=== PATIENT | male | born 1960 | race Caucasian/White ===

== ENCOUNTER 2020-09-20 14:40 | Inpatient (IN) | payer OTHER ==
[~2020-09-20] VITALS: Ht 175.3 cm; Wt 74.8 kg
[~2020-09-20 14:40] MED LIST: AMLODIPINE BESY10 MG PO; ASPIRIN CHEWABL81 MG PO; ASPIRIN EC81 MG PO; ATORVASTATIN CA20 MG PO; ATORVASTATIN CA40 MG PO; BUMETANIDE1 MG PO; CATAPRES 0.1MG0.1 MG PO; CATAPRES0.2 MG PO; CLOPIDOGREL75 MG PO; FOLIC ACID 1 MG1 MG PO; HYDRALAZINE HC100 MG PO; HYDRALAZINE HCL50 MG PO; ISORDIL TAB 2020 MG PO; LASIX 40 MG TAB40 MG PO; LASIX TAB 20 MG20 MG PO; LIPITOR40 MG PO; LISINOPRIL20 MG PO; LOPRESSOR 25 MG25 MG PO; LOPRESSOR 50 MG50 MG PO; PANTOPRAZOLE SO40 MG PO; PLAVIX 75 MG TA75 MG PO; POTASSIUM CHLO10 ME1 PO; SODIUM BICARBO650 M1 PO; VOLTAREN EC 7575 MG PO
[2020-09-20 15:07] LABS: HEMOGLOBIN 10.2 gm/dl (14.0-17.5); RED BLOOD COUNT 3.93 M/UL (4.20-5.50); WHITE BLOOD COUNT 10.4 K/UL (4.5-11.0)
[2020-09-21 04:29] LABS: HEMOGLOBIN 9.6 gm/dl (14.0-17.5); RED BLOOD COUNT 3.72 M/UL (4.20-5.50); WHITE BLOOD COUNT 9.8 K/UL (4.5-11.0)
[2020-09-21] MEDS ORDERED: FERROUS SULFAT325 M2 PO (15:52)
[2020-09-21] MEDS ORDERED: ZAROXOLYN/DIULO5 MG PO (15:55)
[2020-09-21] MEDS ORDERED: BUMETANIDE2 MG PO (15:56)
[2020-09-21] MEDS ORDERED: K-TAB ER20 MEQ PO (16:01)
[2020-09-21] MEDS ORDERED: PROTONIX 40 MG40 M1 PO (16:02)
[2020-09-21] MEDS ORDERED: ISORDIL TAB 2020 MG PO (16:03)
[2020-09-21] MEDS ORDERED: HYDRALAZINE HCL50 MG PO (16:05)
[2020-09-21] MEDS ORDERED: CLOPIDOGREL75 MG PO (16:06)
[2020-09-21] MEDS ORDERED: CLONIDINE HCL0.3 MG PO (16:08)
[2020-09-21] MEDS ORDERED: CARVEDILOL25 MG PO (16:10)
[2020-09-21] MEDS ORDERED: ATORVASTATIN CA40 MG PO (16:12)
[2020-09-21] MEDS ORDERED: NORVASC10 MG PO (16:13)
[2020-09-22 03:31] LABS: HEMOGLOBIN 9.6 gm/dl (14.0-17.5); RED BLOOD COUNT 3.71 M/UL (4.20-5.50)
[2020-09-22 03:32] LABS: WHITE BLOOD COUNT 14.9 K/UL (4.5-11.0)
[2020-09-23 04:19] LABS: HEMOGLOBIN 9.9 gm/dl (14.0-17.5); RED BLOOD COUNT 3.74 M/UL (4.20-5.50); WHITE BLOOD COUNT 15.6 K/UL (4.5-11.0)
[2020-09-23 12:14] LABS: HBSAG SCREEN Negative (Negative); HEP A AB, IGM Negative (Negative); HEP B CORE AB, IGM Negative (Negative); HEP C VIRUS AB >11.0 (0.0-0.9)
[2020-09-24 06:26] LABS: HEMOGLOBIN 9.4 gm/dl (14.0-17.5); RED BLOOD COUNT 3.6 M/UL (4.20-5.50); WHITE BLOOD COUNT 10.3 K/UL (4.5-11.0)
[2020-09-24 10:14] LABS: HBSAG SCREEN Negative (Negative); HEP B CORE AB, TOT Negative (Negative); HEP C VIRUS AB >11.0 (0.0-0.9)
[2020-09-25 14:54] LABS: HEMOGLOBIN 9.8 gm/dl (14.0-17.5); RED BLOOD COUNT 3.68 M/UL (4.20-5.50)
[2020-09-26 04:45] LABS: HEMOGLOBIN 9.5 gm/dl (14.0-17.5); RED BLOOD COUNT 3.66 M/UL (4.20-5.50); WHITE BLOOD COUNT 7.6 K/UL (4.5-11.0)
[2020-09-26 13:02] LABS: ADENOVIRUS F 40/41 Not Detected (Negative); ASTROVIRUS Not Detected (Negative); CAMPYLOBACTER Not Detected (Negative); CLOSTRIDIUM DIFFICILE TOX A/B Not Detected (Negative); CRYPTOSPORIDIUM Not Detected (Negative); E.COLI 0157 Not Detected (Negative); ENTAMOEBA HISTOLYTICA Not Detected (Negative); ENTEROAGGREGATIVE E.COLI (EAEC Not Detected (Negative); ENTEROPATHOGENIC E.COLI (EPEC) Not Detected (Negative); ENTEROTOXIGENIC E.COLI (ETEC) Not Detected (Negative); GIARDIA LAMBLIA Not Detected (Negative); NOROVIRUS GI/GII Not Detected (Negative); PLESIOMONAS SHIGELLOIDES Not Detected (Negative); ROTOVIRUS A Not Detected (Negative); SALMONELLA Not Detected (Negative); SAPOVIRUS Not Detected (Negative); SHIG/ENTEROINVAS.ECOLI (EIEC) Not Detected (Negative); SHIGA-LIK TOX.PRO.E.COLI (STEC Not Detected (Negative); VIBRIO Not Detected (Negative); VIBRIO CHOLERAE Not Detected (Negative); YERSINIA ENTEROCOLITICA Not Detected (Negative)
== END 2020-09-26 13:12 | disposition home or self-care (01) | DRG 673 ==
LOC: ER1 14:40 → MED SURG 4 16:05 → PROG CARE 16:05 → CDU 16:05 → PROG CARE 09-21 13:59 → MED SURG 4 09-22 14:24
PROVIDERS: Internal Medicine; Internal Medicine Gastroenterology; Internal Medicine Nephrology; Physician Assistant; Physician Assistant Medical; Surgery; ADMIT Internal Medicine
PROC: B24BZZZ Ultrasonography of Heart with Aorta (ICD-10-PCS; 2020-09-22)
PROC: 05HM33Z Insertion of Infusion Device into Right Internal Jugular Vein, Percutaneous Approach (ICD-10-PCS; 2020-09-23)
PROC: B543ZZA Ultrasonography of Right Jugular Veins, Guidance (ICD-10-PCS; 2020-09-23)
PROC: 5A1D70Z Performance of Urinary Filtration, Intermittent, Less than 6 Hours Per Day (ICD-10-PCS; 2020-09-23)
PROC: 0JH63XZ Insertion of Tunneled Vascular Access Device into Chest Subcutaneous Tissue and Fascia, Percutaneous Approach (ICD-10-PCS; principal; 2020-09-23 09:00)
PROC: 5A1D70Z Performance of Urinary Filtration, Intermittent, Less than 6 Hours Per Day (ICD-10-PCS; 2020-09-24)
PROC: 5A1D70Z Performance of Urinary Filtration, Intermittent, Less than 6 Hours Per Day (ICD-10-PCS; 2020-09-24)
DX: N17.9 Acute kidney failure, unspecified (principal); I50.33 Acute on chronic diastolic (congestive) heart failure; I13.2 Hypertensive heart and chronic kidney disease with heart failure and with stage 5 chronic kidney disease, or end stage renal disease; N18.6 End stage renal disease; I25.10 Atherosclerotic heart disease of native coronary artery without angina pectoris; E78.5 Hyperlipidemia, unspecified; K70.31 Alcoholic cirrhosis of liver with ascites; R94.31 Abnormal electrocardiogram [ECG] [EKG]; I27.20 Pulmonary hypertension, unspecified; I08.3 Combined rheumatic disorders of mitral, aortic and tricuspid valves; R59.9 Enlarged lymph nodes, unspecified; I73.9 Peripheral vascular disease, unspecified; Z20.822 Contact with and (suspected) exposure to COVID-19; K52.9 Noninfective gastroenteritis and colitis, unspecified; D64.9 Anemia, unspecified; F17.210 Nicotine dependence, cigarettes, uncomplicated; F12.90 Cannabis use, unspecified, uncomplicated; I65.23 Occlusion and stenosis of bilateral carotid arteries; E87.6 Hypokalemia; Z86.19 Personal history of other infectious and parasitic diseases; Z86.718 Personal history of other venous thrombosis and embolism; Z99.2 Dependence on renal dialysis; Z95.1 Presence of aortocoronary bypass graft; Z86.73 Personal history of transient ischemic attack (TIA), and cerebral infarction without residual deficits; Z79.899 Other long term (current) drug therapy; Z79.02 Long term (current) use of antithrombotics/antiplatelets
CPT/HCPCS: ECHO; 36415; 36600; 71045; 76705; 77001; 80048; 80053; 80074; 82040; 82550; 82553; 82728; 82803; 83540; 83550; 83735; 83874; 83880; 84100; 84132; 84155; 84484; 85025; 85027; 86704; 86706; 86708; 86803; 87040; 87340; 87507; 90935; 90937; 93005; 93306; 93880; 93970; 94664; 96365; 96375; 99285; C1750; C1769; C1894; J0360; J1100; J1205; J1335; J1642; J1644; J1756; J1940; J2001; J2250; J2270; J2704; J2765; J3010; J3480; J7030; J7040; J7050; J7120; U0002

== ENCOUNTER 2021-06-02 12:31 | Inpatient (IN) | payer OTHER ==
[~2021-06-02] VITALS: Ht 175.3 cm; Wt 77.8 kg
[~2021-06-02 12:31] MED LIST changes: +BUMETANIDE2 MG PO; -CATAPRES0.2 MG PO; +CLONIDINE HCL0.3 MG PO; +FERROUS SULFAT325 M2 PO; +ISOSORBIDE MONO60 MG PO; +K-TAB ER20 MEQ PO; +NORVASC10 MG PO; +PROTONIX 40 MG40 M1 PO; +ZAROXOLYN/DIULO5 MG PO
[2021-06-02 13:17] LABS: HEMOGLOBIN 17.1 gm/dl (14.0-17.5); RED BLOOD COUNT 5.48 M/UL (4.20-5.50); WHITE BLOOD COUNT 21.2 K/UL (4.5-11.0)
[2021-06-02] MEDS ORDERED: BUMETANIDE2 MG PO (16:05)
[2021-06-02] MEDS ORDERED: ZAROXOLYN/DIUL2.5 MG PO (16:06)
[2021-06-02] MEDS ORDERED: MAGOX 400400 MG PO (16:06)
[2021-06-02] MEDS ORDERED: COZAAR100 MG PO (16:06)
[2021-06-02] MEDS ORDERED: CARVEDILOL25 MG PO (16:10)
[2021-06-02 17:31] LABS: BODY FLUID SOURCE PERITONEAL; RBC (AUTOMATED) < 100 10^6; WBC (AUTOMATED) 4 10^3
--- NOTE | 2021-06-02 21:56 | NUR ---
[facility] CALLED TO . ORDERS TO CONTINUE TO MONITOR PATIENT FOR ANY CHANGES.
[2021-06-03 03:12] LABS: HEMOGLOBIN 14.6 gm/dl (14.0-17.5); RED BLOOD COUNT 4.74 M/UL (4.20-5.50)
[2021-06-04 04:05] LABS: HEMOGLOBIN 13.2 gm/dl (14.0-17.5); RED BLOOD COUNT 4.28 M/UL (4.20-5.50); WHITE BLOOD COUNT 12.4 K/UL (4.5-11.0)
[2021-06-05 03:50] LABS: HEMOGLOBIN 12.4 gm/dl (14.0-17.5); RED BLOOD COUNT 4.04 M/UL (4.20-5.50); WHITE BLOOD COUNT 10.2 K/UL (4.5-11.0)
--- NOTE | 2021-06-05 04:01 | NUR ---
[address] BLANCHARD OF PTS POTASSIUM LEVEL. NO NEW ORDERS AT THIS TIME.
--- NOTE | 2021-06-05 06:13 | NUR ---
0425 LAB CALLED POTASSIUM OF 3.0. MD IS AWARE AND STILL HAVE NO NEW ORDERS TO REPLACE. PT ALERT AND ORIENTED SLEEPING WELL AND IN NO ACUTE DISTRESS. PERITONIEAL DIAYLSIS STILL RUNNING IN ROOM DIAYLSIS NURSE STARTED.
[2021-06-05 12:26] LABS: ADENOVIRUS F 40/41 Not Detected (Negative); ASTROVIRUS Not Detected (Negative); CAMPYLOBACTER Not Detected (Negative); CLOSTRIDIUM DIFFICILE TOX A/B Not Detected (Negative); CRYPTOSPORIDIUM Not Detected (Negative); E.COLI 0157 Not Detected (Negative); ENTAMOEBA HISTOLYTICA Not Detected (Negative); ENTEROAGGREGATIVE E.COLI (EAEC Not Detected (Negative); ENTEROTOXIGENIC E.COLI (ETEC) Not Detected (Negative); GIARDIA LAMBLIA Not Detected (Negative); NOROVIRUS GI/GII Not Detected (Negative); PLESIOMONAS SHIGELLOIDES Not Detected (Negative); ROTOVIRUS A Not Detected (Negative); SALMONELLA Not Detected (Negative); SAPOVIRUS Not Detected (Negative); SHIG/ENTEROINVAS.ECOLI (EIEC) Not Detected (Negative); SHIGA-LIK TOX.PRO.E.COLI (STEC Not Detected (Negative); VIBRIO Not Detected (Negative); VIBRIO CHOLERAE Not Detected (Negative); YERSINIA ENTEROCOLITICA Not Detected (Negative)
[2021-06-05 16:15] LABS: ENTEROPATHOGENIC E.COLI (EPEC) DETECTED (Negative)
[2021-06-05] MEDS ORDERED: HYDROCODON-ACE1 EAC4 PO (18:13)
[2021-06-05] MEDS ORDERED: FLAGYL500 MG PO (18:25)
[2021-06-05] MEDS ORDERED: OMNICEF 300 MG300 MG PO (18:25)
--- NOTE | 2021-06-05 23:05 | NUR ---
PT WAS DISCHARGED HOME TO [facility], PER DR. LOAIZA'S ORDER, AT 2256. PT WAS STABLE, GLAD TO GO HOME, AND MOVED WELL FROM BED TO WHEELCHAIR TO CAR. PT'S LAST SET OF VITALS WERE CHARTED, AFEBRILE, AND WNL FOR THE PT. DISCHARGE INSTRUCTIONS WERE EXPLAINED, FOLLOW UP APPOINTMENTS WERE EXPLAINED, AND PT AND SON WERE INSTRUCTED TO CALL UP TO THE FLOOR IF THEY HAD ANY QUESTIONS ONCE THEY GOT HOME.
== END 2021-06-05 22:56 | disposition home or self-care (01) | DRG 871 ==
LOC: ER1 12:31 → CDU 14:29 → PROG CARE 19:33
PROVIDERS: Emergency Medicine; Physician Assistant; ADMIT Internal Medicine
PROC: 3E1M39Z Irrigation of Peritoneal Cavity using Dialysate, Percutaneous Approach (ICD-10-PCS; principal; 2021-06-02)
DX: A41.9 Sepsis, unspecified organism (principal); N18.6 End stage renal disease; A09 Infectious gastroenteritis and colitis, unspecified; E87.2 Acidosis; Z20.822 Contact with and (suspected) exposure to COVID-19; I12.0 Hypertensive chronic kidney disease with stage 5 chronic kidney disease or end stage renal disease; M62.82 Rhabdomyolysis; R18.8 Other ascites; I16.1 Hypertensive emergency; E87.6 Hypokalemia; I16.0 Hypertensive urgency; I71.4 Abdominal aortic aneurysm, without rupture; F10.10 Alcohol abuse, uncomplicated; I25.10 Atherosclerotic heart disease of native coronary artery without angina pectoris; Z95.1 Presence of aortocoronary bypass graft; Z86.73 Personal history of transient ischemic attack (TIA), and cerebral infarction without residual deficits; Z95.5 Presence of coronary angioplasty implant and graft; Z82.49 Family history of ischemic heart disease and other diseases of the circulatory system; Z99.2 Dependence on renal dialysis
CPT/HCPCS: 36415; 71045; 74019; 80053; 80202; 81001; 82550; 82553; 82962; 83605; 83690; 83735; 83874; 84132; 84484; 85025; 85027; 87040; 87070; 87086; 87205; 87206; 87507; 89051; 90937; 90945; 93005; 96374; 96375; 99285; J0713; J1644; J2185; J2270; J3370; J7050; J7070; U0002